=== PATIENT | female | born 1970 | race Two or more races ===

== ENCOUNTER 2019-11-27 06:50 | Outpatient (CLI) | payer OTHER | END 2019-11-27 06:57 | disposition home or self-care (01) | LOC: LAB 06:50 | DX: R73.01 Impaired fasting glucose (principal); E66.09 Other obesity due to excess calories; M54.17 Radiculopathy, lumbosacral region; J31.0 Chronic rhinitis; Z00.00 Encounter for general adult medical examination without abnormal findings ==

== ENCOUNTER 2019-11-27 07:27 | Outpatient (CLI) | payer OTHER | END 2019-11-27 13:24 | disposition home or self-care (01) | LOC: MAMO-SONO 07:27 | DX: Z12.31 Encounter for screening mammogram for malignant neoplasm of breast (principal) ==

== ENCOUNTER → 2019-12-02 12:48 | Outpatient (CLI) | payer OTHER ==
[~2019-12-02 12:48] MED LIST: KETO10TA2 PO; NAPROXEN SODIU500 M2 PO; TAMS0.4C PO
== END | disposition home or self-care (01) ==
LOC: LAB 12:48
PROVIDERS: ATTEND Family Medicine
DX: J31.0 Chronic rhinitis (principal); M54.17 Radiculopathy, lumbosacral region; R73.01 Impaired fasting glucose; Z00.00 Encounter for general adult medical examination without abnormal findings; E66.09 Other obesity due to excess calories

== ENCOUNTER 2019-12-05 07:13 | Emergency (ER) | payer OTHER ==
[~2019-12-05] VITALS: Ht 152.4 cm; Wt 59.9 kg
[2019-12-05] MEDS ORDERED: NAPROXEN SODIU500 M2 PO (07:22)
[2019-12-05] MEDS ORDERED: TAMS0.4C PO (16:44)
[2019-12-05] MEDS ORDERED: KETO10TA2 PO (16:44)
== END 2019-12-05 17:05 | disposition home or self-care (01) ==
LOC: ER 07:13
DX: N13.2 Hydronephrosis with renal and ureteral calculous obstruction (principal); Z03.818 Encounter for observation for suspected exposure to other biological agents ruled out

== ENCOUNTER 2020-02-08 18:15 | Emergency (ER) | payer OTHER ==
[~2020-02-08] VITALS: Ht 152.4 cm; Wt 60.8 kg
[2020-02-08] MEDS ORDERED: SINGULAIR 10MG10 MG (18:24)
[2020-02-08] MEDS ORDERED: CLARITIN10 M2 (18:24)
[2020-02-08] MEDS ORDERED: ATARAX25 MG (18:24)
[2020-02-08] MEDS ORDERED: ATARAX25 MG PO (19:25)
[2020-02-08] MEDS ORDERED: MEDROLPACK PO (19:25)
== END 2020-02-08 19:38 | disposition home or self-care (01) ==
LOC: ER 18:15
DX: R21 Rash and other nonspecific skin eruption (principal); L50.8 Other urticaria

== ENCOUNTER 2020-10-08 18:41 | Emergency (ER) | payer OTHER ==
[~2020-10-08] VITALS: Ht 152.4 cm; Wt 60.8 kg
[~2020-10-08 18:41] MED LIST changes: +ATARAX25 MG; +ATARAX25 MG PO; +CLARITIN10 M2; +MEDROLPACK PO; +SINGULAIR 10MG10 MG
[2020-10-08] MEDS ORDERED: ZYRTEC10 M3 (20:27)
[2020-10-08] MEDS ORDERED: INTESTINEX680 M1 PO (23:10)
[2020-10-08] MEDS ORDERED: AMOX-CLAV 875-1 EAC1 PO (23:10)
[2020-10-08] MEDS ORDERED: IBU600 MG PO (23:10)
== END 2020-10-08 23:53 ==
LOC: ER 18:41
DX: L72.3 Sebaceous cyst (principal)

== ENCOUNTER 2021-03-07 08:06 | Outpatient (CLI) | payer OTHER ==
[~2021-03-07 08:06] MED LIST changes: +AMOX-CLAV 875-1 EAC1 PO; +IBU600 MG PO; +INTESTINEX680 M1 PO; +ZYRTEC10 M3
== END 2021-03-07 08:17 | disposition home or self-care (01) ==
LOC: LAB 08:06
PROVIDERS: ATTEND Internal Medicine Cardiovascular Disease
DX: I10 Essential (primary) hypertension (principal); Z13.0 Encounter for screening for diseases of the blood and blood-forming organs and certain disorders involving the immune mechanism; K76.89 Other specified diseases of liver; E78.00 Pure hypercholesterolemia, unspecified; Z12.11 Encounter for screening for malignant neoplasm of colon

== ENCOUNTER 2021-03-08 11:36 | Outpatient (CLI) | payer OTHER | END 2021-03-08 12:36 | disposition home or self-care (01) | LOC: LAB 11:36 | PROVIDERS: ATTEND Internal Medicine Cardiovascular Disease | DX: I11.9 Hypertensive heart disease without heart failure (principal); E78.89 Other lipoprotein metabolism disorders; Z13.0 Encounter for screening for diseases of the blood and blood-forming organs and certain disorders involving the immune mechanism; Z12.11 Encounter for screening for malignant neoplasm of colon; E11.9 Type 2 diabetes mellitus without complications; E03.8 Other specified hypothyroidism ==

== ENCOUNTER 2021-03-13 12:22 | Outpatient (CLI) | payer OTHER | END 2021-03-13 12:29 | disposition home or self-care (01) | LOC: LAB 12:22 | PROVIDERS: ATTEND Internal Medicine Cardiovascular Disease | DX: Z13.0 Encounter for screening for diseases of the blood and blood-forming organs and certain disorders involving the immune mechanism (principal); Z12.11 Encounter for screening for malignant neoplasm of colon; I10 Essential (primary) hypertension ==